=== PATIENT | male | born 1950 | race Caucasian/White ===

== ENCOUNTER → 2017-09-08 | Outpatient (CLI) | payer BC | END | disposition home or self-care (01) | LOC: GMAL 11:36 | PROVIDERS: ATTEND Family Medicine | DX: Z00.00 Encounter for general adult medical examination without abnormal findings (principal); E07.9 Disorder of thyroid, unspecified ==

== ENCOUNTER → 2018-10-15 | Outpatient (CLI) | payer BC | LOC: GMAL 14:18 | PROVIDERS: ATTEND Family Medicine | DX: E55.9 Vitamin D deficiency, unspecified (principal); Z12.5 Encounter for screening for malignant neoplasm of prostate ==

== ENCOUNTER 2019-11-21 15:31 | Observation (INO) | payer MEDICARE, BC ==
--- NOTE | 2019-11-21 15:34 | HP ---
SUPERVISING PHYSICIAN: Lucas White MD CHIEF COMPLAINT: Redness to abdominal wall. HISTORY OF PRESENT ILLNESS: Mr. Shore is a 69-year-old male patient of Dr. Watkins. He endorses that over the last three or four days, his umbilical area has been hard and itching and he has been scratching at it for a week. He does have a history of previous hernia repair in that area. Last night, his noticed that the area was significantly reddened, so he went in to see Dr. Watkins today. On examination, Dr. Watkins found the hernia to be incarcerated and he consulted with Dr. Hare who recommended the patient be admitted for treatment of cellulitis and consultation and possible surgery in the morning. He denied any fevers, chills, nausea or vomiting. He also denied he had any significant abdominal pain other than on palpation and no changes in bowel habits. The patient was placed in observation in stable condition. PAST MEDICAL HISTORY: 1. Hypertension. PAST SURGICAL HISTORY: 1. Hernia repair, ventral in 1999. 2. Appendectomy as a child. 3. ORIF of the right arm with a metal plate in 1967 after trauma. HOME MEDICATIONS: Please see list of updated medications in electronic medical record. ALLERGIES: PENICILLIN. FAMILY HISTORY: Mother at age 74 with complications from diabetes. Father at age 67 from mesothelioma. He has two brothers whose health is unknown. SOCIAL HISTORY: The patient is retired. He lives in [place]. 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 He did use smokeless tobacco up until 15 years ago and drinks alcohol on very rare occasions. He does not use any illicit drugs. REVIEW OF SYSTEMS: CONSTITUTIONAL: Negative for any fevers, chills, general malaise, rigors or unintentional weight loss. HEENT: Negative for headache, sore throats, earaches, nasal congestion, vision changes. RESPIRATORY: Denies coughing, wheezing, shortness of breath. CARDIOVASCULAR: Negative for chest pain, palpitations, edema or syncopal episodes. GASTROINTESTINAL: Negative for nausea, vomiting, diarrhea, constipation. Some mild tenderness to the umbilical hernia area as noted in history of present illness. GENITOURINARY: Negative for dysuria, hematuria, polyuria. MUSCULOSKELETAL: Denies arthralgias, joint swelling. SKIN: As noted in history of present illness, cellulitis around the umbilicus. No other lesions, rashes, sores or unexplained changes. NEUROLOGIC: Denies any headaches, vision changes, syncopal episodes, ataxia, seizure or other neuro focal deficits. HEMATOLOGIC: Denies easy bruising, unexplained bleeding or transfusion reactions. PHYSICAL EXAMINATION: VITAL SIGNS: Reviewed and noted- EHR down at time of dictation GENERAL: The patient is resting comfortably. He appears to be in no acute distress. He is alert. HEENT: Tympanic membranes clear bilaterally. Oropharynx is pink, moist without any lesions. NECK: Supple, nontender with full range of motion. No jugular venous distention noted. RESPIRATORY: Lungs clear to auscultation bilaterally without any rhonchi, wheezes or rales. CARDIOVASCULAR: Regular rate and rhythm without any appreciable murmurs, gallops, or rubs. ABDOMEN: Obese, soft with an area of redness, cellulitis and erythema that is warm to the touch around the umbilicus. Just to the lateral aspect of the umbilicus on the left is a protrusion that is hard, about the size of a small golf ball. No areas fluctuance or crepitus. The area is tender to touch. The rest of the abdomen is nontender. No rebound tenderness. NEUROLOGIC: Cranial nerves II-XII are grossly intact. The patient is alert and oriented times three. SKIN: Warm, pink and dry except as noted of the umbilical area with an area of cellulitis. LABORATORY: Laboratory studies have been reviewed. RADIOLOGY: Abdominal series in the clinic showed no findings suggesting ileus or bowel obstruction. EKG showed sinus rhythm with an old lateral infarct. No acute ST changes or T-wave inversion to indicate ischemia or acute injury pattern. Chest x-ray pending. CT of the abdomen pending. ASSESSMENT: 1. Cellulitis of the abdominal wall around the umbilicus with concerns for possible incarcerated ventral hernia, awaiting surgical consultation. 2. History of hypertension. PLAN: Mr. Shore is going to be placed in observation for initiation of antibiotics in regards to the cellulitis of the abdominal wall. I have given him a loading dose of vancomycin and will follow that per pharmacy protocol. At this point, he is not running a fever. He has just a very mild leukocytosis, nothing to indicate any significant other infection. We will hold off on any additional antibiotics and await consultation with Dr. Hare in the morning. He will be NPO overnight with anticipation of possibly having surgery in the morning. We will hold off on Lovenox for DVT prophylaxis tonight and resume once he has seen Dr. Hare as needed. He will be given IV fluids. We will anticipate his length of stay to be one to two days. Until the patient can transition to outpatient management, we will continue to monitor and treat as needed. #[id number] [facility]
[2019-11-21] MEDS ORDERED: ACETAMINOPHEN 325 MG TAB PO PRN (16:37)
[2019-11-21] MEDS ORDERED: MORPHINE SULFATE INJ 10 MG/ML VIAL IV PRN (16:37)
[2019-11-21] MEDS ORDERED: ALUM & MAG HYDROX-SIMETHICONE 30 ML UD PO PRN (16:37)
[2019-11-21] MEDS ORDERED: ONDANSETRON INJ 4 MG/2 ML VIAL IV PRN (16:37)
[2019-11-21] MEDS ORDERED: MAGNESIUM HYDROXIDE 30 ML UD PO PRN (16:37)
[2019-11-21] MEDS ORDERED: SODIUM CHLORIDE 0.9% (FLUSH) 10 ML SYG IV PRN (16:37)
[2019-11-21] MEDS ORDERED: IV SET AND CAP CHANGE INJ INJ SCH (17:00)
[2019-11-21] MEDS ORDERED: VANCOMYCIN HCL INJ 1,000 MG VIAL IVPB ONE (18:09)
[2019-11-21] MEDS ORDERED: SODIUM CHLORIDE 0.9% 250ML 250 ML ONE (18:09)
[2019-11-21] MEDS ORDERED: VANCOMYCIN PER PHARMACY INJ SCH (23:00)
--- NOTE | 2019-11-22 07:31 | RAD ---
EXAM DESCRIPTION: Chest,2 Views CLINICAL HISTORY: preop COMPARISON: None TECHNIQUE: PA/lateral FINDINGS: The lungs are well expanded and clear. No infiltrates or effusions or masses are noted. The heart is normal in size and shape with no evidence of vascular congestion. The poncho and mediastinum demonstrate normal contours. The bony spine and chest wall is normal for age in appearance. IMPRESSION: Normal chest, two views Electronically signed by: Tae Hendrix MD 11/22/2019 7:29 AM [facility]
[2019-11-22] MEDS ORDERED: SODIUM CHLORIDE 0.9% 500ML 500 ML ONE (08:57)
[2019-11-22] MEDS ORDERED: VANCOMYCIN HCL INJ 1,000 MG VIAL IVPB ONE (08:58)
--- NOTE | 2019-11-22 09:05 | CONS ---
DATE OF CONSULTATION: 11/22/19 CHIEF COMPLAINT: Tender abdominal wall mass. HISTORY OF PRESENT ILLNESS: The patient is a 69-year-old male who was admitted directly through the office of Dr. Watkins to the hospitalist service yesterday late afternoon for a tender mass in his anterior abdominal wall. He was started on IV vancomycin. The patient states he had a hernia repair somewhere near 20 years ago at [facility] or at least in [place]. About 5 years ago, he developed a mass there that was soft and nontender. Over the last several days, it has become harder, more tender and he developed erythema. There was no fever, chills, no nausea or vomiting, no change in his bowel habits. He has no history of chest pain or cardiac event. He has never seen a sr. strategic sourcing manager. PAST MEDICAL HISTORY: 1. Fracture of his right wrist as a teenager that was surgically repaired. 2. Appendectomy. 3. He has been treated for high blood pressure for 15 or so years. MEDICATIONS: 1. Lisinopril. 2. Hydrochlorothiazide. 3. Amlodipine. ALLERGIES: He is alleged to be allergic to penicillin, but states he has taken many derivatives without a problem. SOCIAL HISTORY: The patient is . He does not smoke. He drinks rarely. He is retired from the [employer]. REVIEW OF SYSTEMS: There has been no cough, productive cough, shortness of breath, chest pain. He has no significant difficulty voiding. He has noted no change in his bowel habits. He denies melanotic stools or blood per rectum. He has no upper respiratory symptoms associated with sinusitis. He denies headaches. PHYSICAL EXAMINATION: GENERAL: The patient is awake, alert, in no acute distress. VITAL SIGNS: The patient is currently afebrile, normotensive. Blood pressure 149/82. Pulse 57. Respiratory rate 18. HEENT: Sclerae nonicteric. Mucous membranes moist. NECK: Without adenopathy. BACK: Without CVA tenderness. CHEST: Equal breath sounds bilaterally. HEART: Regular rate and rhythm. ABDOMEN: Soft. There is a non-reducible, minimally tender mass to the left of the midline. There is a previous incision at that point. There is mild erythema, but it is decreased significantly from what was marked yesterday. RECTAL: Deferred. EXTREMITIES: Without cyanosis, clubbing or edema. LABORATORY: White count 11,000 this morning. Hemoglobin 16, platelet count 191,000. Potassium 3.8, creatinine 1.34, sodium 137. Chest x-ray is clear. ASSESSMENT: 1. Incarcerated recurrent incisional hernia. PLAN: The risks, benefits and alternatives to repair of this under general anesthesia were discussed with the patient. He understands and wishes to proceed. His was present during the conversation. #[id number] [facility]
[2019-11-22] MEDS: VANCOMYCIN HCL INJ 1,750 MG in SODIUM CHLORIDE 0.9% 500ML 500 ML IVPB SCH (09:25)
[2019-11-22] MEDS ORDERED: PROPOFOL 200 MG/20 ML VIAL IV ONE (10:00)
[2019-11-22] MEDS ORDERED: SODIUM CHLORIDE 0.9% 50 ML VIAL INJ ONE (10:00)
[2019-11-22] MEDS ORDERED: WATER FOR INJ 10 ML VIAL INJ ONE (10:00)
[2019-11-22] MEDS ORDERED: LIDOCAINE 1% 10 ML VIAL INJ ONE (10:00)
[2019-11-22] MEDS ORDERED: raNITIdine HCL INJ 25 MG/ML VIAL IV ONE (10:00)
[2019-11-22] MEDS ORDERED: VECURONIUM BROMIDE 10 MG VIAL IV ONE (10:00)
[2019-11-22] MEDS ORDERED: DEXAMETHASONE INJ 10 MG/ML VIAL IV ONE (10:00)
[2019-11-22] MEDS ORDERED: BUPIVACAINE 0.25% W/EPI 50 ML VIAL INJ ONE ×2 (10:05→10:18)
[2019-11-22] MEDS ORDERED: KETAMINE HCL 100 MG/ML VIAL ONE (10:06)
[2019-11-22] MEDS ORDERED: ROCURONIUM BROMIDE 10 MG/ML VIAL ONE (10:07)
[2019-11-22] MEDS ORDERED: MIDAZOLAM INJ 2 MG/2 ML VIAL ONE (10:07)
[2019-11-22] MEDS ORDERED: LACTATED RINGERS 1,000 ML ONE (10:18)
[2019-11-22] MEDS ORDERED: fentaNYL CITRATE INJ 50 MCG/ML AMP ONE (10:35)
[2019-11-22] MEDS ORDERED: DEXMEDETOMIDINE HCL 200 MCG/2 ML INJ IV ONE (10:35)
[2019-11-22] MEDS ORDERED: SUGAMMADEX SODIUM 200 MG/2 ML VIAL IV ONE (11:41)
[2019-11-22] MEDS ORDERED: ELECTROLYTE-A 1,000 ML IVS ONE (11:41)
[2019-11-22] MEDS ORDERED: HYDROmorphone HCL INJ 2 MG/ML VIAL ONE (11:42)
[2019-11-22] MEDS ORDERED: ONDANSETRON INJ 4 MG/2 ML VIAL IV PRN (13:34)
[2019-11-22] MEDS ORDERED: HYDROcodone 10MG/APAP 325MG 1 EA TAB PO PRN (13:34)
[2019-11-22] MEDS ORDERED: MORPHINE SULFATE INJ 10 MG/ML VIAL IV PRN (13:40)
--- NOTE | 2019-11-22 14:14 | OP ---
DATE OF PROCEDURE: 11/22/19 PREOPERATIVE DIAGNOSIS: 1. Incarcerated, recurrent incisional hernia. POSTOPERATIVE DIAGNOSIS: 1. Incarcerated, recurrent incisional hernia times 3. PROCEDURE: 1. Repair of 3 incarcerated, recurrent incisional hernias. SURGEON: Josse Hare MD. POWER SEWING MACHINE OPERATOR: None. ANESTHESIA: General endotracheal anesthesia and local infiltration of 1% lidocaine. INDICATION: The patient is a 69-year-old male who has had a mass just lateral to his umbilicus times approximately 5 years. He is approximately 20 status post repair of a hernia in that area with mesh. Over the last 2 days, it became hard, red and quite uncomfortable. There was no nausea, vomiting or fever. He was seen in Dr. Watkins' office yesterday and was felt to have early cellulitis. He was admitted and started on vancomycin since he is allergic penicillin. His redness resolved significantly. He remained afebrile. His white count was 13,000 this morning. After discussion of the risks, benefits and alternatives to the procedure, he was brought to the Surgical Suite today for repair of same. FINDINGS: There was a transverse hernia lateral to the umbilicus that was approximately 1 cm wide and approximately 3.5 cm long and this was transverse. Just above this hernia, approximately 1.5 cm above, there was another hernia that was approximately 1 by 2 cm and this was vertically oriented. There was also a small hernia that was less than 0.5 cm in diameter to the patient's right side of the transverse hernia. All there hernias had omentum within them. There was a small amount of what appeared to be necrotic omentum in the largest of the hernias, the transverse hernia. PROCEDURE: After adequate general endotracheal anesthesia was obtained with the patient in the supine position, he was prepped and draped in the usual sterile manner. A surgical time-out was taken. At this time, the previous incision in the skin lateral on the patient's left side of the incision was infiltrated with local anesthesia. The previous scar was excised and the incision was lengthened to the patient's left side. Dissection was carried down through the skin and subcutaneous tissue using electrocautery. Almost immediately, the hernia sac was identified. Using electrocautery and blunt dissection, it was dissected free circumferentially, eventually down to the fascia. The hernia contents were much larger than the defect, so at this point the hernia sac was opened and the omentum was dissected free from the hernia sac at first and then it was decided to just resect it and this was done with clamps and ligatures of 2-0 Vicryl and occasional suture ligature of 2-0 Vicryl. When this was done, the specimen was passed off the field. The first defect was identified. The edges were cleaned and it was closed with interrupted yfmtcf-vk-[id number] sutures of #1 PDS. As noted, there was a second defect to the patient's right side of this, a small one, and it was closed with a single fwwxga-xs-vgazc suture of #1 PDS. The hernia that was vertically oriented above the large hernia was closed with interrupted #1 dqvcov-vt-hrshr sutures of PDS. When these all had been tightened and tied, the wound was irrigated with saline. Hemostasis was noted to be adequate. The subcutaneous fat was then dissected free from the abdominal wall fascia using blunt dissection and electrocautery circumferentially. When this was done, a 5 cm by 10 cm oval Surgimesh patch was introduced, fashioned over all 3 of the repairs lengthwise vertically oriented. It was sutured in place with interrupted 2-0 Prolene and 2-0 Vicryl sutures. The umbilicus was then sutured to the mesh in the midline with a single dpsxdm-[id number] suture of 2-0 Prolene. At this point, after again irrigating the wound, it was decided to place a drain. A drain was placed on top of the mesh through a stab wound in the right lower quadrant. It was sutured in place with a 3-0 Nylon ligature. The subcutaneous tissue was then reapproximated with interrupted 3-0 Vicryl sutures. The drain was placed to suction drainage with a grenade and the skin edges were approximated with skin stapler. Sterile pressure dressing was applied. An abdominal binder was applied. The patient was awakened and taken to the Recovery Room in good and stable condition. Estimated blood loss was axillary 200 mL. All sponge, needle and instrument counts were correct. #[id number] [facility]
[2019-11-22] MEDS: KCL 20MEQ/D5 1/2NS 1,000 ML IVS PRN (15:19)
[2019-11-22] MEDS ORDERED: LISINOPRIL 10 MG TAB PO ONE (16:47)
[2019-11-22] MEDS: amLODIPine BESYLATE 5 MG TAB PO SCH (17:15)
[2019-11-22] MEDS ORDERED: PANTOPRAZOLE SODIUM TAB 40 MG PO ONE (19:06)
[2019-11-23] MEDS: KCL 20MEQ/D5 1/2NS 1,000 ML IVS PRN ×2 (01:57→12:40)
[2019-11-23] MEDS: PANTOPRAZOLE SODIUM TAB 40 MG PO SCH (06:14)
[2019-11-23] MEDS ORDERED: VANCOMYCIN HCL INJ 1,000 MG VIAL IVPB ONE (08:03)
[2019-11-23] MEDS ORDERED: SODIUM CHLORIDE 0.9% 500ML 500 ML ONE (08:03)
[2019-11-23] MEDS: VANCOMYCIN HCL INJ 1,750 MG in SODIUM CHLORIDE 0.9% 500ML 500 ML IVPB SCH (09:03)
[2019-11-23] MEDS: hydroCHLOROthiazide 12.5 MG CAP PO SCH (09:04)
[2019-11-23] MEDS: amLODIPine BESYLATE 5 MG TAB PO SCH (09:04)
[2019-11-23] MEDS: LISINOPRIL 10 MG TAB PO SCH (09:04)
--- NOTE | 2019-11-23 09:37 | PN ---
DATE: 11/22/2019 SUPERVISING PHYSICIAN: Lucas White MD SUBJECTIVE: The patient is sitting up in bed talking on the phone and watching television. He has no complaints. He has passed some gas but has been unable to have a bowel movement yet. He has had no nausea or vomiting. He is planning on walking in the hallways later this evening. His pain has been well- controlled. OBJECTIVE: VITAL SIGNS: Temperature is 97.6, heart rate 68, blood pressure 155/87, respiratory rate 16, oxygen saturation 94% on room air. RESPIRATORY: Slightly diminished at the bases, otherwise clear to auscultation. CARDIAC: Regular rate and rhythm. ABDOMEN: Rounded, he has an abdomen binder in place. Bowel sounds are hypoactive. NEURO: He is awake, alert, and oriented x3. LABORATORY: No labs to report at this time. ASSESSMENT: 1. Abdominal pain secondary to incarcerated hernia status post hernia repair x3, postoperative day #0. 2. Questionable cellulitis of the abdomen. PLAN: We will continue present supportive care. His operative issues will be per Dr. Hare, general surgeon. Dr. Hare has ordered lab for in the morning. At this point, I have restarted his home medications and he will continue on his vancomycin as previously ordered. I will discuss with Dr. Hare further antibiotic orders. Encouraged good pulmonary hygiene and patient to walk frequently in the hallway. We will monitor him closely and follow as needed. #[id number] [facility]
--- NOTE | 2019-11-23 21:25 | PN ---
DATE: 11/23/19 SUPERVISING PHYSICIAN: Lucas White M.D. SUBJECTIVE: The patient is sitting up in bed. He has no complaints of nausea, vomiting, chest pain or shortness of breath. He did say he walked once earlier today without any problems. He has not had a bowel movement. OBJECTIVE: VITAL SIGNS: Temperature 98, heart rate 68, blood pressure 130/81, respiratory rate 16, O2 saturation 95% on room air. RESPIRATORY: Diminished at the bases but otherwise clear to auscultation. CARDIAC: Regular rate and rhythm. GASTROINTESTINAL: He has an abdominal binder in place with a J-P drain. Bowel sounds are very hypoactive although I heard them in all four quadrants. NEUROLOGIC: He is awake, alert and oriented times three. LABORATORY: WBCs are 12,800 with hemoglobin 14.3, hematocrit 42.7. He has a mild left shift on differential. Chemistries are within normal limits with the exception of his glucose is high at 150. Serum osmolality is slightly low at 274.6. Blood cultures show no growth after 24 hours. All other labs and films have been reviewed via the EMR. ASSESSMENT: 1. Abdominal pain secondary to incarcerated hernia status post hernia repair times 3, postoperative day #1. 2. Questionable cellulitis of the abdomen. PLAN: We will continue present supportive care. Operative issues will be per Dr. Hare. Dr. Hare has ordered lab for in the morning. I have encouraged the patient to walk as frequently as possible. Hopefully he will be discharged in the next day or so. Will continue to monitor closely and follow as needed. #[id number] [facility]
[2019-11-24] MEDS: KCL 20MEQ/D5 1/2NS 1,000 ML IVS PRN (05:46)
[2019-11-24] MEDS: PANTOPRAZOLE SODIUM TAB 40 MG PO SCH (06:13)
[2019-11-24] MEDS ORDERED: SODIUM CHLORIDE 0.9% 500ML 500 ML ONE (08:17)
[2019-11-24] MEDS ORDERED: VANCOMYCIN HCL INJ 1,000 MG VIAL IVPB ONE (08:17)
[2019-11-24] MEDS: LISINOPRIL 10 MG TAB PO SCH (08:49)
[2019-11-24] MEDS: hydroCHLOROthiazide 12.5 MG CAP PO SCH (08:49)
[2019-11-24] MEDS: amLODIPine BESYLATE 5 MG TAB PO SCH (08:49)
[2019-11-24] MEDS: VANCOMYCIN HCL INJ 1,750 MG in SODIUM CHLORIDE 0.9% 500ML 500 ML IVPB SCH (08:49)
[2019-11-24] MEDS ORDERED: MAGNESIUM HYDROXIDE 30 ML UD PO ONE (09:30)
[2019-11-24 13:11] VITALS: BP 151/100; TEMP 98.7; O2SAT 98
--- NOTE | 2019-11-25 09:03 | DS ---
SUPERVISING PHYSICIAN: Lucas White MD DISCHARGE DIAGNOSIS: 1. Abdominal pain secondary to incarcerated hernia status post hernia repair times 3, postoperative day #2. 2. Questionable cellulitis of the abdomen. HISTORY OF PRESENT ILLNESS: This is a 69-year-old male patient who goes to Dr. Watkins. Over the three or four days prior to his admission, his umbilical area had been hard and itching and he had bothered him for over a week. He does have a history of previous umbilical hernia repair. He went to see Dr. Watkins due to significantly increase in redness. Dr. Watkins found the hernia to be incarcerated and he consulted with Dr. Hare who recommended the patient be admitted for treatment of cellulitis as well as consultation and possible surgery. He denied any fevers, chills, nausea or vomiting. There was no significant abdominal pain other than the pain to palpation. He had no changes in bowel habits. The patient was placed in observation in the hospital. HOSPITAL COURSE: Dr. Hare was consulted and antibiotics were initiated. Vancomycin was dosed per pharmacy protocol. His vital signs were stable and he did not have any fever. He did have mild leukocytosis. He was evaluated by Dr. Hare and Dr. Hare planned on surgical repair of the incarcerated hernia. He was placed NPO. He was taken to surgery on the morning following his admission. The surgery was somewhat lengthier than previously anticipated as he had to have an open incision and an actual repair of 3 hernias. He went through the operative phase and recovery phase without any major complications. He was placed on the Floor and continued on his antibiotics. His diet was advanced slowly. Initially, he had gas, but was unable to pass stool. He tolerated his diet without any issues and it was advanced slowly. There was no nausea or vomiting. Today, he had a regular diet and Dr. Hare actually ordered some Milk of Magnesia. He has been walking in the hallways. He had minimal complaints of pain and Dr. Hare said he could be discharged home with close followup with him within the next 1 to 2 weeks. LABORATORY: His initial white blood cell count was 11,300. It went up to 12,800 and today is 11,300. At one point, there was a slight shift on his differential, but it is normal today. Hemoglobin and hematocrit are stable at 15.5 and 46.1. Electrolytes and liver function tests within normal limits with amylase 51, lipase 39. Creatinine was elevated at 1.34 and came down to 1.03. Urinalysis was negative. Preliminary blood cultures showed no growth after 48 hours. RADIOLOGY: His admitting chest x-ray showed normal chest, two views. DISCHARGE PLAN: The patient will be discharged home in stable condition. He is to resume his previous diet. Wound care is per Dr. Hare's instructions and followup with Dr. Hare within the next 1 to 2 weeks. In addition to his routine medications, he is to take Bactrim DS b.i.d. for one week and I have given him some acetaminophen with codeine for pain. He is to return to the hospital or followup with Dr. Hare for any problems or complications. DISCHARGE MEDICATIONS: 1. Amlodipine. 2. Lisinopril/hydrochlorothiazide. 3. Bactrim DS. 4. Acetaminophen with codeine #3. #[id number] [facility]
== END 2019-11-24 15:11 | disposition home or self-care (01) ==
LOC: INTOOBSV 15:31 → MS 15:31
PROVIDERS: ADMIT Nurse Practitioner Family; ATTEND Nurse Practitioner Acute Care
DX: K43.0 Incisional hernia with obstruction, without gangrene (principal); L03.311 Cellulitis of abdominal wall; I10 Essential (primary) hypertension; Z79.899 Other long term (current) drug therapy; Z88.0 Allergy status to penicillin; Z87.891 Personal history of nicotine dependence; Z90.49 Acquired absence of other specified parts of digestive tract
CPT/HCPCS: 96366 ×2; 96367; 96365; 96375; 96376; C1781; J3010; J1170; J2270; J3490; J7040 ×3; J7050; J3370 ×4; J1100; A4216 ×2; J2250; J2780; J7120; 80048; 80053; 36415 ×2; 82150; 81001; 85025 ×3; 87040 ×2; 83690; 83735; 83605; 88302; 71046; 94760 ×4; 93005; G0378; 49566; 00832